=== PATIENT | female | born 1975 | race American Indian/Alaskan Native ===

== ENCOUNTER 2021-03-11 07:51 | Emergency (ER) | payer MEDICAID ==
[2021-03-11 08:02] VITALS: BP 153/88
== END 2021-03-11 10:36 | disposition home or self-care (01) ==
LOC: ED 07:51
DX: R10.10 Upper abdominal pain, unspecified (principal); Z53.21 Procedure and treatment not carried out due to patient leaving prior to being seen by health care provider